=== PATIENT | male | born 1940 | race Caucasian/White ===

== ENCOUNTER 2019-09-10 11:41 | Emergency (ER) | payer MEDICARE ==
--- NOTE | 2019-09-10 12:26 | Emergency Department Record ---
History of Present Illness - General Chief Complaint: Fall Injury Stated Complaint: FALL Time Seen by Provider: 09/10/19 12:12 Source: Patient Mode of Arrival: Ambulatory Limitations: No limitations - History of Present Illness Initial Comments: The patient is here due to a slip and fall yesterday on ice and hitting his R shoulder on the ground. He may have hit his head but is not sure. There was no LOC and the patient denies any HOWARD or neck pain since. The patient also denies any confusion or balance issues. He does take Coumadin for his heart. 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 Fall Witnessed: Yes, by family Place Fall Occurred: Home Loss of Consciousness: None Prolonged Down Time?: No Location: Head Associated Symptoms: Denies - [place] Coma Scale Eye Response: (4) Open spontaneously Motor Response: (6) Obeys commands Verbal Response: (5) Oriented [place] Total: 15 - Related Data Home Medications Medication Instructions Recorded Confirmed Last Taken Amlodipine Besylate [Norvasc] 10 mg PO DAILY 09/10/19 09/10/19 09/10/19 Metformin HCl 1,000 mg PO BID 09/10/19 09/10/19 09/10/19 Solifenacin Succinate [Vesicare] 10 mg PO DAILY 09/10/19 09/10/19 09/10/19 Warfarin Sodium [Coumadin] 5 mg PO DAILY 09/10/19 09/10/19 09/09/19 Allergies Allergy/AdvReac Type Severity Reaction Status Date / Time No Known Drug Allergies Allergy Verified 09/10/19 12:07 Travel/Exposure Screening - Travel/Exposure Within Last 30 Days Have you traveled within the last 30 days?: No - Travel/Exposure Within Last Year Have you traveled outside the [place] in the last year?: No - Additonal Travel/Exposure Details Have you been exposed to anyone with a communicable illness?: No - Travel Symptoms Symptom Screening: None Review of Systems Constitutional: Denies: Chills, Fever Eyes: Denies: Eye discharge ENT: Denies: Congestion Respiratory: Denies: Cough, Dyspnea Past Medical History - SOCIAL HISTORY Smoking Status: Never smoker Alcohol Use: None Drug Use: Occasional Drug Use Detail:: Marijuana - RESPIRATORY Hx Respiratory Disorders: Yes Hx Asthma: Yes - CARDIOVASCULAR Hx Cardio Disorders: No Comment:: pt unknown to why he takes warfarin - NEURO Hx Neuro Disorders: No - GI Hx GI Disorders: No - Hx Genitourinary Disorders: No - ENDOCRINE Hx Endocrine Disorders: Yes Hx Diabetes: Yes (type 2) Hx Thyroid Disease: No - MUSCULOSKELETAL Hx Musculoskeletal Disorders: No Comment:: shoulders and knees - PSYCH Hx Psych Problems: No - HEMATOLOGY/ONCOLOGY Hx Hematology/Oncology Disorders: No Family Medical History Any Significant Family History?: No Physical Exam - General General Appearance: Alert, Oriented x3, Cooperative, No acute distress - Head Head exam: Atraumatic, Normocephalic, Normal inspection - Eye Eye exam: Normal appearance, PERRL - Neck Neck exam: Normal inspection, Full ROM. negative: Tenderness (There is no Cspine tenderness.) - Respiratory Respiratory exam: Normal lung sounds bilaterally. negative: Respiratory distress - Cardiovascular Cardiovascular Exam: Irregular rhythm - GI/Abdominal GI/Abdominal exam: Soft, Normal bowel sounds. negative: Tenderness - Extremities Extremities exam: Normal inspection, Tenderness (There is R shoulder tenderness to palpation.). negative: Full ROM (The patient is able to flex, extend, and abduct to 90 degrees with pain. The R arm is NVI with normal pulses.) - Neurological Neurological exam: Alert, Normal gait. negative: Abnormal gait, Motor sensory deficit Course Vital Signs 09/10/19 11:55 Temperature 98.0 F Pulse Rate 80 Respiratory 20 Rate Blood Pressure 146/85 Pulse Ox 97 - Reevaluation(s) Reevaluation #1: The patient is doing well. I did discuss the xray results with him and the need for F/U with his PCP. 09/10/19 13:49 Reevaluation #2: I did discuss the Head CT report with the patient and the need for F/U with his PCP to compare with an old one or obtain an MRI. I also did give him the CT report. 09/10/19 13:57 Medical Decision Making - Data Complexity MDM Data: Labs Ordered and/or Reviewed, X-Ray Ordered and/or Reviewed - Lab Data Result diagrams: 09/10/19 12:20 09/10/19 12:20 - Radiology Data Radiology results: Report reviewed (Head CT: Neg for any acute changes. R Shoulder: Post op changes. O/W neg.) Disposition Disposition: Discharge Clinical Impression: Shoulder contusion Qualifiers: Encounter type: initial encounter Laterality: right Qualified Code(s): S40.011A - Contusion of right shoulder, initial encounter Disposition: Home, Self-Care Condition: (2) Stable Instructions: Contusion in Adults (ED) Additional Instructions: Please wear the arm sling for 5 days and take Tylenol for pain. Please see your family doctor for recheck next week. Return to the ER for any worsening issues. Forms: Patient Portal Access Time of Disposition: 13:52 Quality - Quality Measures Quality Measures: N/A - Blood Pressure Screening View Details: Yes Does Patient Have Any of the Following: No Blood Pressure Classification: Pre-Hypertensive BP Reading Systolic Measurement: 146 Diastolic Measurement: 85 Screening for High Blood Pressure: < Pre-Hypertensive BP, F/U Documented > [[id number]] Pre-Hypertensive Follow-up Interventions: Referral to alternative/primary care provider.
[2019-09-10 12:36] LABS: ABSOLUTE NEUTROPHIL COUNT 4.83; BASO % 0.2 % (0-6); EOS % 2.6 % (0-6); GRAN % 50.7 % (47-80); HEMOGLOBIN 12.9 gm/dl (14.0-18.0); LYMPH % 38.4 % (16-45); MEAN CELL VOLUME 90.1 fl (81-97); MEAN CORPUSCULAR HGB CONC 33.1 g/dl (32-36); MEAN PLATELET VOLUME 10.3 fl (7.4-10.4); MONO % 8.1 % (0-9); PLATELET COUNT 202 K/uL (130-400); RED BLOOD COUNT 4.33 M/uL (4.40-5.70); RED CELL DISTRIBUTION WIDTH 14.5 % (11.5-14.5); WHITE BLOOD COUNT W/O DIFF 9.5 K/uL (4.2-12.2)
[2019-09-10 12:37] LABS: MEAN CORPUSCULAR HEMOGLOBIN 29.7 pg (27-33)
[2019-09-10] MEDS ORDERED: ACETAMINOPHEN 325 MG TAB PO ONE (12:45)
[2019-09-10 12:46] LABS: BLOOD UREA NITROGEN 24 mg/dL (8-23); CREATININE 0.8 mg/dL (0.7-1.2); EST GLOMERULAR FILTRATION RATE > 60 mL/min
[2019-09-10 12:49] LABS: GLUCOSE,RANDOM 152 mg/dL (74-109); INR 2.6; PARTIAL THROMBOPLASTIN TIME 37.4 SECONDS (24.5-39.1); PROTHROMBIN TIME (PATIENT) 25.5 SECONDS (9.5-12.1)
--- NOTE | 2019-09-10 13:21 | CT SCAN REPORT ---
EXAMINATION: CT Head without IV Contrast EXAM DATE: 09/10/2019 1:08 PM TECHNIQUE: Standard protocol CT images of the head were obtained without intravenous contrast. Moe l and sagittal reconstructed images were created. INDICATION: trauma COMPARISON: None HAND DOMINANCE: Unknown. ENCOUNTER: Not applicable FINDINGS: No acute intracranial hemorrhage or depressed calvarial fracture. Moderate volume loss and corresponding ventricular enlargement. Moderate low-attenuation changes in t he white matter suggest old small vessel ischemic change. No acute cortical infarct evident. There is a partially calcified dural based nodule along the right side of the anterior falx without a djacent brain reaction. This measures about 11 mm AP by 8 mm mediolateral by 11 mm cephalocaudal. Thi s is consistent with meningioma. Prior bilateral lens surgery. Old medial left orbital wall fracture noted.. IMPRESSION: 1. No acute intracranial hemorrhage. 2. Volume loss and moderate old small vessel ischemic changes. 3. Right frontal parafalcine meningioma without adjacent brain reaction. Dictated by: Rodri Quintana MD on 09/10/2019 1:14 PM. .
--- NOTE | 2019-09-10 13:53 | RADIOLOGY REPORT ---
EXAMINATION: Right Shoulder, Complete Minimum Two Views EXAM DATE: 09/10/2019 1:13 PM TECHNIQUE: 3 views. INDICATION: trauma. Fell on right shoulder 2 days ago. COMPARISON: None ENCOUNTER: Initial FINDINGS: Postop right reverse shoulder arthroplasty. There is widening of the right acromioclavicular distance which appears likely old/chronic. There is some related bony remodeling. No fracture, dislocation or any acute traumatic findings are seen. IMPRESSION: Postop right reverse shoulder arthroplasty. No acute traumatic findings. Dictated by: Jean Donovan MD on 09/10/2019 1:50 PM. .
== END 2019-09-10 14:00 | disposition home or self-care (01) ==
LOC: ER 11:41
DX: S40.011A Contusion of right shoulder, initial encounter (principal); S09.90XA Unspecified injury of head, initial encounter; W00.0XXA Fall on same level due to ice and snow, initial encounter; Y92.009 Unspecified place in unspecified non-institutional (private) residence as the place of occurrence of the external cause; E11.9 Type 2 diabetes mellitus without complications; Z79.84 Long term (current) use of oral hypoglycemic drugs; Z79.01 Long term (current) use of anticoagulants
CPT/HCPCS: 70450; 80048; 85025; 85610; 85730; 99284